=== PATIENT | male | born 1940 ===

== ENCOUNTER 2017-05-15 10:17 | Emergency (ER) | payer MEDICARE, MEDICAID ==
[2017-05-15 11:02] LABS: URINE BILIRUBIN NEGATIVE (NEGATIVE); URINE BLOOD NEGATIVE (NEGATIVE); URINE COLOR Yellow (YELLOW); URINE GLUCOSE (UA) NORMAL (Normal); URINE KETONE NEGATIVE (NEGATIVE); URINE LEUKOCYTE ESTERASE NEG Leu/uL (Negative); URINE PROTEIN NEGATIVE (NEGATIVE); URINE UROBILINOGEN NORMAL mg/dL (0.2-1.0)
--- NOTE | 2017-05-15 11:28 | C.PDOC ---
History Of Present Illness 76 y/o male with PSHx of Nephrectomy in 1976 presents to ED with complaints of right sided abdominal "burning" pain and swelling for 3 days. Patient reports x1 episode of vomiting this morning after drinking coffee and nausea. Patient reports pain is worse when laying down or sitting. Patient denies fever , chills, back pain or any other complaints at this time. Time Seen by Provider: 05/15/17 10:35 Chief Complaint (Nursing): Male Genitourinary History Per: Patient History/Exam Limitations: no limitations Onset/Duration Of Symptoms: Days Current Symptoms Are (Timing): Still Present Quality Of Discomfort: Burning Past Medical History Reviewed: Historical Data, Nursing Documentation, Vital Signs Vital Signs: Last Vital Signs Temp 97.7 F 05/15/17 10:25 Pulse 95 H 05/15/17 10:25 Resp 18 05/15/17 10:25 BP 153/95 H 05/15/17 10:25 Pulse Ox 100 05/15/17 10:25 - Medical History PMH: No Chronic Diseases Surgical History: No Surg Hx Family History: States: No Known Family Hx - Social History Hx Alcohol Use: No Hx Substance Use: No - Immunization History Hx Tetanus Toxoid Vaccination: No Hx Influenza Vaccination: Yes Hx Pneumococcal Vaccination: No Review Of Systems Constitutional: Negative for: Fever, Chills Gastrointestinal: Positive for: Nausea, Vomiting, Abdominal Pain. Negative for : Diarrhea Musculoskeletal: Negative for: Back Pain Skin: Negative for: Rash Neurological: Negative for: Weakness, Numbness Physical Exam - Physical Exam Appears: Non-toxic, No Acute Distress Skin: Warm, Dry, No Rash Head: Atraumatic, Normacephalic Eye(s): bilateral: Normal Inspection Oral Mucosa: Moist Neck: Normal ROM, Supple Cardiovascular: Rhythm Regular Respiratory: Normal Breath Sounds, No Rales, No Rhonchi, No Wheezing Gastrointestinal/Abdominal: Soft, Tenderness (RUQ), No Guarding, No Rebound, Hernia (reducible umbilical), Other (Healed surgical scar to right side) Back: No CVA Tenderness, No Paraspinal Tenderness Extremity: Normal ROM, Capillary Refill (<2 seconds) Neurological/Psych: Oriented x3, Normal Speech, Normal Motor, Normal Sensation ED Course And Treatment O2 Sat by Pulse Oximetry: 100 (RA) Pulse Ox Interpretation: Normal Disposition - Disposition - 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 - Chapisibe Statement The provider has reviewed the documentation as recorded by the Chapisibeve Choudhary All medical record entries made by the Stanley were at my direction and personally dictated by me. I have reviewed the chart and agree that the record accurately reflects my personal performance of the history, physical exam, medical decision making, and the department course for this patient. I have also personally directed, reviewed, and agree with the discharge instructions and disposition.
--- NOTE | 2017-05-15 11:31 | C.PDOC ---
History Of Present Illness 76 y/o male with PSHx of Nephrectomy in 1976 presents to ED with complaints of "burning" pain with associated swelling to right side abdomen for 3 days. Patient reports x1 episode of vomiting this morning after drinking coffee and nausea. Patient reports pain is worse when laying down or sitting. Patient denies fever, chills, back pain or any other complaints at this time. Time Seen by Provider: 05/15/17 10:35 Chief Complaint (Nursing): Male Genitourinary History Per: Patient History/Exam Limitations: no limitations Onset/Duration Of Symptoms: Days Current Symptoms Are (Timing): Still Present Pain Scale Rating Of: 5 Quality Of Discomfort: Burning Associated Symptoms: denies: Fever, Chills Alleviating Factors: None Recent travel outside of the [place]: No Past Medical History Reviewed: Historical Data, Nursing Documentation, Vital Signs Vital Signs: Last Vital Signs Temp 98.2 F 05/15/17 14:47 Pulse 94 H 05/15/17 14:47 Resp 20 05/15/17 14:47 BP 138/85 05/15/17 14:47 Pulse Ox 100 05/16/17 18:37 - Medical History PMH: No Chronic Diseases Surgical History: No Surg Hx Family History: States: No Known Family Hx - Social History Hx Alcohol Use: No Hx Substance Use: No - Immunization History Hx Tetanus Toxoid Vaccination: No Hx Influenza Vaccination: Yes Hx Pneumococcal Vaccination: No Review Of Systems Except As Marked, All Systems Reviewed And Found Negative. Constitutional: Negative for: Fever, Chills Gastrointestinal: Positive for: Nausea, Vomiting, Abdominal Pain. Negative for : Diarrhea, Constipation Musculoskeletal: Negative for: Back Pain Skin: Negative for: Rash Neurological: Negative for: Weakness, Numbness Physical Exam - Physical Exam Appears: Non-toxic, No Acute Distress Skin: Warm, Dry, No Rash Head: Atraumatic, Normacephalic Eye(s): bilateral: Normal Inspection, PERRL, EOMI Oral Mucosa: Moist Neck: Normal ROM, Supple Chest: Symmetrical, No Tenderness Cardiovascular: Rhythm Regular, No Friction Rub, No Murmur Respiratory: Normal Breath Sounds, No Rales, No Rhonchi, No Wheezing Gastrointestinal/Abdominal: Bowel Sounds (present), Soft, Tenderness (RUQ), No Guarding, No Rebound, Hernia (Reducible umbilical), Other (Healed surgical scar to right sided abdomen ) Back: Normal Inspection, No CVA Tenderness, No Paraspinal Tenderness Extremity: Normal ROM, Capillary Refill (<2 seconds) Neurological/Psych: Oriented x3, Normal Speech, Normal Motor, Normal Sensation Gait: Steady ED Course And Treatment - Laboratory Results Result Diagrams: 05/15/17 11:44 05/15/17 11:44 O2 Sat by Pulse Oximetry: 100 (RA) Pulse Ox Interpretation: Normal Disposition - Disposition Referrals: [facility] [Outside] Disposition: HOME/ ROUTINE Disposition Time: 14:41 Condition: GOOD Additional Instructions: Follow up with the medical doctor within 1-2 days, return if worsened. Prescriptions: Famotidine [Pepcid] 20 mg PO BID #20 tab Polyethylene Glycol 3350 [Miralax] 17 gm PO DAILY PRN #100 ml PRN Reason: Constipation Instructions: Acute Abdominal Pain (ED) Forms: [employer] (Moz[place]ican) - Clinical Impression Clinical Impression: Gastritis, Abdominal pain - PA / WASHER ENGINEER / Resident Statement MD/DO has reviewed & agrees with the documentation as recorded. - Scribe Statement The provider has reviewed the documentation as recorded by the Chapisibeve Choudhary All medical record entries made by the Chapisibeve were at my direction and personally dictated by me. I have reviewed the chart and agree that the record accurately reflects my personal performance of the history, physical exam, medical decision making, and the department course for this patient. I have also personally directed, reviewed, and agree with the discharge instructions and disposition.
[2017-05-15 12:00] LABS: BASO % 0.7 % (0.0-2.0); EOS % 0.7 % (0.0-4.0); HEMATOCRIT 45.3 % (35.0-51.0); LYMPH # 1.2 K/uL (1.0-4.3); LYMPH % 20.8 % (20.0-40.0); MEAN CELL VOLUME 94.3 fL (80.0-94.0); MEAN CORPUSCULAR HEMOGLOBIN 31.1 pg (27.0-31.0); MEAN CORPUSCULAR HGB CONC 32.9 g/dL (33.0-37.0); MEAN PLATELET VOLUME 9.9 fL (7.2-11.7); MONO # 0.7 K/uL (0.0-0.8); MONO % 11.6 % (0.0-10.0); NRBC % 0.1 % (0.0-2.0); RED CELL DISTRIBUTION WIDTH 14.4 % (11.5-14.5); WHITE BLOOD COUNT 5.9 K/uL (4.8-10.8)
[2017-05-15 12:01] LABS: ALB/GLOB RATIO 1.3 (1.0-2.1); ALKALINE PHOSPHATASE 81 U/L (38-126); ALT/SGPT 32 U/L (21-72); AST/SGOT 29 U/L (17-59); BILIRUBIN,TOTAL 1.3 mg/dL (0.2-1.3); BLOOD UREA NITROGEN 15 mg/dL (9-20); CALCIUM 8.8 mg/dl (8.6-10.4); CARBON DIOXIDE 22 mmol/L (22-30); CHLORIDE 101 mmol/L (98-107); GFR AFRICAN-AMERICAN > 60; GLUCOSE,RANDOM 89 mg/dL (75-110); POTASSIUM 4.6 mmol/L (3.6-5.2); SODIUM 134 mmol/L (132-148)
[2017-05-15] MEDS ORDERED: Iodixanol 320 MG/ML 100 ML BOTTLE IV ONE (12:40)
--- NOTE | 2017-05-15 14:15 | CT ---
PROCEDURE: CT scan abdomen pelvis dated 05/15/2017 HISTORY: Right-sided abdominal pain. Vomiting COMPARISON: No prior. TECHNIQUE: Contiguous axial images of the abdomen and pelvis performed following intravenous injection of approximately 100 cc Visipaque 320 contrast material. . Sagittal reformats generated. This CT exam was performed using one or more of the following dose reduction techniques: Automated exposure control, adjustment of the mA and/or kV according to patient size, and/or use of iterative reconstruction technique. Radiation dose: Total exam DLP = 1015.63 80 mGy-cm. FINDINGS: LOWER THORAX: Minor bibasilar atelectasis/scarring. . There is an approximately 16.6 x 11.6 x 33 mm of pleural based soft tissue density with peripheral calcification located along the posterolateral convexity left lung base. This may represent some old posttraumatic or post infectious sequela however is felt to be benign given its overall appearance. . No effusion or basilar pneumothorax. . Tiny hiatal hernia. . LIVER: Liver exhibits normal size. Moderate diffuse fatty hepatic infiltration. No obvious hepatic mass collection or calcification. Portal and splenic veins are opacified. GALLBLADDER AND BILE DUCTS: Gallbladder is physiologically distended. No evidence of intraluminal gallbladder calculi. No obvious pericholecystic fluid collections. PANCREAS: The pancreas is slightly atrophic and fatty replaced. No obvious pancreatic masses collections or calcifications. SPLEEN: Unremarkable. No splenomegaly. ADRENALS: Unremarkable. KIDNEYS AND URETERS: Right kidney is absent and there are no metallic surgical clips or radiopaque suture material seen in the right renal fossa and therefore findings could be due to a congenital absence of the right kidney however correlation with surgical history recommended. The left kidney exhibits relatively homogeneous nephrogram. No evidence of nephrolithiasis or hydronephrosis. . There is a tiny approximately 4.7 mm rounded partially exophytic low-attenuation focus anterior aspect midpole left renal cortex that is too small to characterize though this could represent a tiny hyperdense cyst. Correlation with renal ultrasound could be performed to confirm. BLADDER: Urinary bladder is incompletely distended. No evidence of intraluminal urinary bladder calculi. There is mild localize wall thickening along the inferior floor of the urinary bladder nonspecific. Findings could represent some combination of layering debris and possibly encroaching slightly enlarged prostate gland possibility of intrinsic/invasive wall lesion should be excluded. REPRODUCTIVE: Prostate gland measures approximately 4.1 cm in transverse dimension. Multiple prostatic calcifications present. Findings likely due to BPH however correlation with PSA recommended to exclude prostatic carcinoma. Seminal vesicles appear grossly unremarkable. APPENDIX: The appendix is not identified with complete certainty however what probably represents normal somewhat atrophic appearing appendix seen on axial image number [id number]. No surrounding inflammatory changes. BOWEL: Evaluation of the bowel is somewhat limited due to the lack of oral contrast material. Stomach is incompletely distended which presumably accounts for slight thick-walled appearance. Gastritis not excluded. Visualized loops small bowel exhibit normal contour and caliber. No evidence of acute mechanical small bowel obstruction. . Relatively large amount of stool seen within the cecum and at ascending and to a lesser degree transverse proximal transverse colon consistent with fecal retention/constipation. No definitive abnormal mural wall thickening. PERITONEUM: Unremarkable. No fluid collection. No free air. Large amount of intraperitoneal fat present consistent with mild central obesity pattern. There is a small fat containing umbilical hernia. LYMPH NODES: Unremarkable. No enlarged lymph nodes. VASCULATURE: Unremarkable. No aortic aneurysm. BONES: Mild multilevel degenerative spondylosis of the lumbar and to a lesser degree lower thoracic spine. OTHER FINDINGS: None. IMPRESSION: Fatty hepatic infiltration. Findings consistent with constipation. Probable small hyperdense cyst left kidney. Absent right kidney with no surgical sequela in the right renal fossa on; findings could be congenital absence of the kidney however correlation with surgical history recommended. See above discussion for additional findings details and recommendations.
[2017-05-15 14:48] VITALS: BP 138/85; PULSE 94; RESP 20; TEMP 98.2
[2017-05-16 18:37] VITALS: O2SAT 100
== END 2017-05-15 15:02 | disposition home or self-care (01) ==
LOC: C.ER 10:17
DX: K29.70 Gastritis, unspecified, without bleeding (principal)
CPT/HCPCS: 74177; 80053; 81001; 83690; 85025; 87086; 96374; 96375; 99284; J1885; J2405; Q9967